=== PATIENT | female | born 1980 | race Caucasian/White ===

== ENCOUNTER → 2017-12-23 | Outpatient (CLI) | payer MEDICAID | LOC: FIMAGING 17:10 | PROVIDERS: ATTEND Family Medicine | DX: O20.0 Threatened abortion (principal) ==

== ENCOUNTER → 2017-12-29 | Day surgery (SDC) | payer SELFPAY ==
[~2017-12-29] MED LIST: ACETAMINOPHEN 500 MG TAB PO PRN; BUPIVACAINE 0.5% 30 ML SDV ONE; CEFAZOLIN 2 GM/DEXTROSE/100 ML BAG IV ONE; DEXAMETHASONE 4 MG/ML VIAL IVP PRN; DEXAMETHASONE 4 MG/ML VIAL ONE; HYDROCODONE/APAP 5/325 TAB ONE; HYDROCODONE/APAP 5/325 TAB PO PRN; HYDROmorphONE/DILAUDID 2 MG/ML INJ ONE; KETOROLAC 30 MG/1 ML SDV ONE; LIDOCAINE 2% 100 MG/5 ML SYR ONE; MEPERIDINE 25 MG/0.5 ML AMP IVP PRN; MIDAZOLAM 2 MG/2 ML VIAL IVP ONE; MIDAZOLAM 2 MG/2 ML VIAL ONE; NALOXONE HCL 0.4 MG/ML INJ IVP PRN; NS 1,000 ML IV ONE; ONDANSETRON 4 MG/2 ML VIAL IVP PRN; ONDANSETRON 4 MG/2 ML VIAL ONE; PROMETHAZINE HCL 25 MG/ML INJ IVP PRN; PROPOFOL 200 MG/20 ML VIAL ONE; ROCURONIUM 50 MG/5 ML VIAL ONE; SILVER NITRATE APPLICATOR 1 APPL TP ONE; SUGAMMADEX SODIUM 200 MG/2 ML VIAL IVP ONE; ceFAZolin 2 GM/DEXTROSE 100 ML IV ONE; fentaNYL 100 MCG/2 ML INJ ONE; fentaNYL 250 MCG/5 ML INJ ONE; oxyCODONE IR 5 MG TAB PO PRN
--- NOTE | 2017-12-29 15:12 | EDPHY ---
H & P Stated Complaint: RLQ pain Time Seen by Provider: 12/29/17 14:49 HPI/ROS: CHIEF COMPLAINT: Right lower quadrant pain, vaginal bleeding HISTORY OF PRESENT ILLNESS: 37-year-old female SAB 2 TAB 1 LMP 11/12/17 presents with right lower quadrant pain and vaginal bleeding. Onset of vaginal bleeding 7 days ago, associated with right lower quadrant pain. The bleeding and pain have gradually increased and now are moderate. Initial quantitative beta HCG on 12/23 was 199, repeat beta HCG on 12/25 was 114 and today beta-hCG is 146. Ultrasound today revealed a right adnexal mass. Sent here for evaluation for ectopic . REVIEW OF SYSTEMS: complete 10 point ROS reviewed and is negative except for the noted elements in the HPI - Personal History LMP (Females 10-55): Current Tetanus/Diphtheria Vaccine: Yes Current Tetanus Diphtheria and Acellular Pertussis (TDAP): Yes - Medical/Surgical History Hx Asthma: No Hx Chronic Respiratory Disease: No Hx Diabetes: No Hx Cardiac Disease: No Hx Renal Disease: No Hx Cirrhosis: No Hx Alcoholism: No Hx HIV/AIDS: No Hx Splenectomy or Spleen Trauma: No Other PMH: HTN, fan - Social History Smoking Status: Current every day smoker Alcohol Use: Sober Drug Use: None - Physical Exam Exam: General Appearance: Alert, pleasant Eyes: Pupils equal and round, no conjunctival pallor or injection ENT, Mouth: Mucous membranes moist Neck: Normal inspection Respiratory: Lungs are clear to auscultation Cardiovascular: Regular rate and rhythm Gastrointestinal: Abdomen is soft, right lower quadrant tenderness Neurological: A&O, nonfocal, normal gait Skin: Warm and dry, no rash Extremities: Nontender, no pedal edema Psychiatric: Mood and affect normal Constitutional: Initial Vital Signs Temperature (C) 37.1 C 12/29/17 14:41 Heart Rate 112 H 12/29/17 14:41 Respiratory Rate 16 12/29/17 14:41 Blood Pressure 177/99 H 12/29/17 14:41 O2 Sat (%) 96 12/29/17 14:41 O2 Delivery Mode Room Air Allergies/Adverse Reactions: No Known Allergies Allergy (Unverified 12/29/17 14:41) Home Medications: Medication Instructions Recorded Losartan Potassium [Cozaar 25 mg 25 mg PO DAILY 12/29/17 (*)] Medical Decision Making - Diagnostics Imaging Results: Pelvic ultrasound reveals a right adnexal mass with free fluid in the pelvis. Imaging: Discussed imaging studies w/ fisher scallop Radiologist ED Course/Re-evaluation: 1500: This patient presents with a likely ectopic . IV was established and she was placed on a monitor. Dr. Lopez consulted on pt arrival , will see pt. Patient seen in the emergency department by Dr. Lopez and taken directly to the OR for ectopic . She was stable throughout her emergency department stay. Differential Diagnosis: Differential diagnosis includes though it is not limited to ectopic , ovarian cyst, ovarian torsion, PID, UTI, appendicitis. - Data Points Laboratory Results: Laboratory Results 12/29/17 15:08 12/29/17 15:08 12/29/17 12/29/17 12/29/17 15:08 15:08 15:08 WBC 11.48 10^3/uL H 10^3/uL (3.80-9.50) RBC 4.66 10^6/uL 10^6/uL (4.18-5.33) Hgb 14.3 g/dL g/dL (12.6-16.3) Hct 42.4 % % (38.0-47.0) MCV 91.0 fL fL (81.5-99.8) MCH 30.7 pg pg (27.9-34.1) MCHC 33.7 g/dL g/dL (32.4-36.7) RDW 13.5 % % (11.5-15.2) Plt Count 367 10^3/uL 10^3/uL (150-400) MPV 9.0 fL fL (8.7-11.7) Neut % (Auto) 69.0 % % (39.3-74.2) Lymph % (Auto) 20.6 % % (15.0-45.0) [place] % (Auto) 8.1 % % (4.5-13.0) Eos % (Auto) 1.6 % % (0.6-7.6) Baso % (Auto) 0.4 % % (0.3-1.7) Nucleat RBC Rel Count 0.0 % % (0.0-0.2) Absolute Neuts (auto) 7.93 10^3/uL H 10^3/uL (1.70-6.50) Absolute Lymphs (auto) 2.36 10^3/uL 10^3/uL (1.00-3.00) Absolute Monos (auto) 0.93 10^3/uL H 10^3/uL (0.30-0.80) Absolute Eos (auto) 0.18 10^3/uL 10^3/uL (0.03-0.40) Absolute Basos (auto) 0.05 10^3/uL 10^3/uL (0.02-0.10) Absolute Nucleated RBC 0.00 10^3/uL 10^3/uL (0-0.01) Immature Gran % 0.3 % % (0.0-1.1) Immature Gran # 0.03 10^3/uL 10^3/uL (0.00-0.10) Sodium 139 mEq/L mEq/L (135-145) Potassium 4.7 mEq/L mEq/L (3.3-5.0) Chloride 104 mEq/L mEq/L (97-110) Carbon Dioxide 26 mEq/l mEq/l (22-31) Anion Gap 9 mEq/L mEq/L (6-14) BUN 15 mg/dL mg/dL (7-23) Creatinine 0.5 mg/dL L mg/dL (0.6-1.0) Estimated GFR > 60 Glucose 102 mg/dL H mg/dL (70-100) Calcium 9.5 mg/dL mg/dL (8.5-10.4) Beta HCG, Quant 173.08 mIU/mL H mIU/mL (0.00-4.83) Patient ABO/Rh O POSITIVE Medications Given: Discontinued Medications Bupivacaine HCl (Sensorcaine 0.5% Vial) Confirm Administered Dose 30 ml .ROUTE .STK-MED ONE Stop: 12/29/17 15:32 Last Admin: 12/29/17 17:27 Dose: 22 ml Sodium Chloride (Ns) 1,000 mls @ 0 mls/hr IV ONCE ONE; Wide Open PRN Reason: Protocol Stop: 12/29/17 14:53 Last Admin: 12/29/17 15:10 Dose: 1,000 mls Midazolam HCl (Versed) 2 mg IVP ONCALL ONE Stop: 12/29/17 16:06 Last Admin: 12/29/17 16:10 Dose: 2 mg Silver Nitrate/Potassium Nitrate (Silver Nitrate Applicator) Confirm Administered Dose 1 each TP .STK-MED ONE Stop: 12/29/17 15:32 Last Admin: 12/29/17 17:27 Dose: Not Given Departure - Departure Disposition: To OP Cath/Surgery Condition: Good
[2017-12-29 15:18] LABS: PLATELET COUNT 367 10^3/uL (150-400)
--- NOTE | 2017-12-29 15:59 | PDANEPAE ---
ANE History of Present Illness R ectopic removal, laparoscopic ANE Past Medical History - Cardiovascular History Hx Hypertension: Yes - Pulmonary History Hx Oxygen in Use at Home: No - Endocrine History Hx Diabetes: No ANE Review of Systems Review of systems is: negative Review of Systems: - Exercise capacity Exercise capacity: >=4 METS ANE Patient History - Allergies Allergies/Adverse Reactions: No Known Allergies Allergy (Unverified 12/29/17 14:41) - Home Medications Home medications: home medication list seen and reviewed Home Medications: Losartan Potassium [Cozaar 25 mg (*)] 25 mg PO DAILY 12/29/17 [Last Taken ] - Anes Hx Anes Hx: no prior problems - Smoking Hx Smoking Status: Current every day smoker - Alcohol Use Alcohol Use: Sober - Family Anes Hx Family Anes Hx: none ANE Labs/Vital Signs - Labs Result Diagrams: 12/29/17 15:08 12/29/17 15:08 - Vital Signs Vital Signs: reviewed preoperatively; see RN documention for details Blood Pressure: 148/101 Heart Rate: 100 Respiratory Rate: 16 O2 Sat (%): 98 Height: 157.48 cm Weight: 99.79 kg ANE Physical Exam - Airway Neck exam: FROM Mallampati Score: Class 2 Mouth exam: normal dental/mouth exam - Pulmonary Pulmonary: no respiratory distress - Cardiovascular Cardiovascular: regular rate and rhythym - ASA Status ASA Status: II, E ANE Anesthesia Plan Anesthesia Plan: general endotracheal anesthesia (RSI)
--- NOTE | 2017-12-29 16:25 | GHP ---
DATE OF ADMISSION: 12/29/2017 ADMITTING DIAGNOSIS: 1. Right lower quadrant pain. 2. Vaginal bleeding. 3. Suspect right ectopic . HISTORY OF PRESENT ILLNESS: Patient is a 37-year-old 6, para 2-0-3-2, with last menstrual period 11/12/2017, who presents to the emergency room with worsening right lower quadrant pain and vaginal bleeding. The patient states onset of vaginal bleeding 7 days ago, along with right lower quadrant pain. The patient states bleeding was heavy at first, now intermittent off and on with small clots. The patient states right lower quadrant pain is localized, but sharp. She does experience cramping throughout her lower abdomen. The patient has associated nausea. She did experience breast tenderness, as well as nausea, vomiting 12 days ago when she had a positive urine test. These symptoms have now resolved. The patient saw her primary care physician and on 12/23 had a quant HCG of 116 and ultrasound showed no IUP, but thickened endometrial stripe; no free fluid, and a right adnexal mass 2 x 2 cm. Today on ultrasound, there is a tiny possible pseudo-gestational sac measuring 4 weeks 5 days, no pole, no yolk sac and an enlarging right adnexal mass, now 3 x 3 x 2 cm, small to moderate fluid in cul-de-sac and quant HCG is 173. The patient does not have an SCRAP IRON CUTTER here. She has a history of a followed by a successful . The patient states she is Rh positive. PAST OB HISTORY: In 2007, the patient had a secondary to arrest of dilation, a viable female infant. In 2012, she had a successful , a viable male infant, uncomplicated. GYNECOLOGIC HISTORY: Age of menarche 12. Cycles are regular and she bleeds for 5-7 days. The patient denies a history of abnormal Pap smears. She admits to exposure to gonorrhea that was treated a year ago. The patient is not using any control at this time. ALLERGIES: No known drug allergies. MEDICATIONS: Losartan. PAST MEDICAL HISTORY: Hypertension. PAST SURGICAL HISTORY: , laparoscopic cholecystectomy. SOCIAL HISTORY: Patient lives with her partner and her 2 children. The patient admits to tobacco use, current, every day. Denies any alcohol or illicit drug use. FAMILY HISTORY: Mother, father with hypertension and type 2 diabetes. REVIEW OF SYSTEMS: 10-point review of systems is negative. Pertinent positives noted in HPI. LABORATORY: White count 11.48, H and H 14.3, 42.4. Beta HCG is 173.08. STUDIES: On pelvic ultrasound, there is tiny intrauterine sac-like structure identified, corresponds to 4 weeks 5 days. pole, yolk sac not identified , may represent a pseudo-gestational sac. There is increased in size of right- sided adnexal mass measuring 3.8 x 3.4 x 2.3 cm with slight peripheral vascular flow. Small amount of complex fluid in posterior cul-de-sac may represent hemorrhage. Corpus luteal cyst measuring 2.1 x 1.7 cm on the left side. EXAM ON ADMISSION: VITAL SIGNS: Patient is afebrile at37.1, heart rate 112, respirations 16, blood pressure 177/99, 96% on room air. GENERAL: Well- nourished well-developed female, alert and oriented x3. Mild-moderate distress secondary to pain. SKIN: Warm, dry without rash. NEURO: Grossly intact. CARDIOVASCULAR: Regular rate and rhythm. LUNGS: Clear to auscultation bilaterally. ABDOMEN: Soft. Moderate tenderness to palpation in the right lower quadrant. Voluntary guarding noted. Negative rebound. PELVIC EXAM: There is active bleeding noted and the cervix is closed; uterus is normal size, nontender and mobile; tenderness is noted in right adnexa. EXTREMITIES: Normal to inspection without calf tenderness or edema. ASSESSMENT/PLAN: Patient is a 37-year-old, G6, P2-0-3-2 with last menstrual period 11/12/2017 with right lower quadrant pain, vaginal bleeding, and likely a right ectopic . 1. Reviewed ultrasound findings with patient as well as blood work. Discussed this is an abnormal that is likely in the right tube. Discussed proceeding to the operating room for diagnostic laparoscopy with removal of and tube. The patient agrees with the plan at this time. 2. Surgical consents were obtained. Discussed risks, benefits, alternatives of the procedure including, but not limited to, bleeding, infection, and damage to surrounding organs including bowel, bladder, and ureters. The patient understands all risks of surgery and wants to proceed at this time. Patient was properly consented. 3. Patient is O positive. No RhoGAM is needed. 4. Sequential compression devices for deep venous thrombosis prophylaxis. 5. Antibiotics deputy insurance commissioner to operating room, Ancef 2 gm ordered. /[id number]/MODL MTDD
--- NOTE | 2017-12-29 17:09 | POSTANESTH ---
Post Anesthetic Evaluation Cardiovascular Status: Normal, Stable, Similar to Pre-Op Cond Respiratory Status: Similar to Pre-op Cond. Level of Consciousness/Mental Status: Can Participate in Eval, Mildly Sleepy, Arousable Pain Control: Adequate, Prn Tx Ordered Nausea/Vomiting Control: Adequate, Prn Tx Ordered Complications Possibly Related to Anesthesia: None Noted
--- NOTE | 2017-12-29 17:41 | POSTOPPROG ---
Post Op Note Date of Operation: 12/29/17 Surgeon: Bridget Lopez Wood Calker: ANTONELLA Bruce Anesthesiologist: Brenton Winters Anesthesia: GET(General Endotracheal) Pre-op Diagnosis: RLQ pain, vaginal bleeding, R ectopic Post-op Diagnosis: RLQ pain, vaginal bleeding, R ectopic Indication: 37 y/o w/ RLQ pain, VB x 12D w/ enlarging R adnexal mass; no IUP Procedure: Dx Laparoscopy with R salpingectomy with removal of ectopic Findings: Ut w/ adhesions to bladder; ov normal appearing; 3 cm R ectopic; L tube adh Inf/Abcess present in the surg proc area at time of surgery?: No Depth: Organ Space EBL: 50-100 (50 cc) Total fluids administered: 900 cc UO: 150 cc clear urine at end Complications: None Specimen(s): Right tube with ectopic
[2017-12-29] MEDS: fentaNYL 100 MCG/2 ML INJ IVP PRN ×2 (17:48→18:03)
[2017-12-29] MEDS: HYDROmorphONE/DILAUDID 2 MG/ML INJ IVP PRN ×2 (18:17→18:25)
[2017-12-29 20:33] VITALS: BP 129/80
--- NOTE | 2017-12-30 01:58 | GOP ---
DATE OF OPERATION: 12/29/2017 SURGEON: Bridget Lopez DO JIGMAN: ANTONELLA Bruce. ANESTHESIA: General endotracheal. ANESTHESIOLOGIST: Brenton Winters MD. PREOPERATIVE DIAGNOSIS: 1. Right lower quadrant pain. 2. Vaginal bleeding. 3. Right ectopic . POSTOPERATIVE DIAGNOSIS: 1. Right lower quadrant pain. 2. Vaginal bleeding. 3. Right ectopic . PROCEDURE PERFORMED: 1. Diagnostic laparoscopy. 2. Right salpingectomy with removal of ectopic . FINDINGS: On bimanual exam the patient had a normal size uterus, mobile, nontender. Moderate tenderness in the right adnexa. Body habitus limits accuracy of exam Laparoscopically, the uterus did appear grossly normal; however , there were adhesions anteriorly to the bladder from previous surgery. Ovaries were grossly normal appearing bilaterally. The left tube appeared to be adhered to the uterus and left sidewall; fimbria was not seen. There was noted to be a 3 cm right ectopic with minimal bleeding located in isthmus portion of the tube. Very small hemoperitoneum noted. Upper abdomen was grossly normal appearing. SPECIMENS: Right tube with the ectopic . ESTIMATED BLOOD LOSS: 50 cc. INDICATIONS: The patient is a 37-year-old, 6, para 2-0-3-2 with a 6 day duration of right lower quadrant pain, vaginal bleeding with a positive urine test. Last menstrual period of 11/12/2017. The patient presented to her primary care physician who got blood work showing a quant of 116, and a pelvic ultrasound showing no IUP and a right adnexal mass measuring 2 x 2 cm on 12/23. The patient then had on and off vaginal bleeding. The right lower quadrant pain became more severe and the patient came into the emergency room today. Pain is localized per patient, but she does experience cramping across her entire lower abdomen and there is associated nausea. The quant today was 173. An ultrasound did show a pseudogestational sac measuring 4 weeks 5 days in the uterus and an enlarging right adnexal mass now 3 x 3 cm with mild to moderate free fluid. Discussed findings with the patient of likely an abnormal located in the right tube. Discussed proceeding to the operating room for a laparoscopic surgery with removal of tube with . Discussed risks of the procedure including but not limited to, bleeding, infection, and damage to surrounding organs. The patient understands all risks at this time and wants to proceed. She was properly consented. DESCRIPTION OF PROCEDURE: The patient was taken back to the operating room where general anesthesia was obtained without difficulty. The patient was placed in dorsal lithotomy position and prepped and draped in the usual sterile fashion. A Chery catheter was then placed. Patient received 2 g of Ancef prior to incision. After WHO time-out was performed, a sponge on a stick was placed in the vagina. We turned our attention to the abdomen where 0.5% plain Marcaine was injected infraumbilically. A 5 mm incision was then made with a scalpel and extended with a hemostat. A Veress needle was then placed through this incision while tenting the abdominal wall. Aspiration was negative and pneumoperitoneum was obtained with 3.5 L of CO2 gas. The Veress needle was then removed, and a 5 mm trocar with attached 0 degree scope was then placed directly into this incision with some difficulty secondary to body habitus under direct visualization. Pelvic organs were visualized at this time. We then injected more local in the right and left side of lower abdomen. Then, a 10 mm skin incision was made in the right lower quadrant and a 5 mm skin incision was made in the left lower quadrant. Atraumatic trocars were placed under direct visualization without difficulty. The patient was then placed in Trendelenburg position. Findings as noted above. At this time, the fimbria of the right tube was grasped with atraumatic graspers. LigaSure was then inserted through the right lower quadrant 10 mm port and several bites with the LigaSure device were used to transect the mesosalpinx, inferior to fallopian tube and then transect the fallopian tube near its insertion nto the uterus. The right tube was able to be removed through the 10 mm port without difficulty and then an Endo Catch bag was then placed down the 10 mm port to remove the rest of the remaining tube with . Specimen was sent to Pathology. The right mesosalpinx and pedicles were examined and hemostasis was noted. The abdomen was copiously irrigated with normal saline and again hemostasis was noted. The ureter on the right side was visualized and peristalsis was seen. All trocars were then removed under direct visualization. All instruments removed from the abdomen. Gas was allowed to escape from the abdomen. The fascia of the 10 mm incision was closed with 0 Vicryl on an SR needle with help of S retractors. Skin incisions were then all closed with Dermabond. The patient tolerated the procedure well. There were no complications. The sponge on a stick was removed from the vagina with no blood. Sponge, lap, and needle counts correct x2. The patient was then awakened, taken out of dorsal lithotomy position and sent to the PACU in stable condition. IV FLUIDS: 900 cc LR. URINE OUTPUT: 150 cc of clear urine at the end of the procedure. COMPLICATIONS: None. /[id number]/MODL MTDD
== END | disposition home or self-care (01) ==
LOC: FIMAGING 13:18 → EDSTATUS 14:45 → SUPCPDRO 14:45 → FSGY 15:39 → UNDOADMOB 15:39
PROVIDERS: ATTEND Obstetrics & Gynecology
PROC: 0UT54ZZ Resection of Right Fallopian Tube, Percutaneous Endoscopic Approach (ICD-10-PCS; principal; 2017-12-29 16:00)
DX: O00.90 Unspecified ectopic pregnancy without intrauterine pregnancy (principal)
CPT/HCPCS: J0690; J1100; J1170; J1885; J2001; J2250; J2405; J2704; J3010